=== PATIENT | female | born 1930 | race Caucasian/White ===

== ENCOUNTER 2017-11-06 07:37 | Emergency (ER) | payer MEDICARE, BC ==
[2017-11-06 08:32] LABS: Hematocrit 40.8 % (37.0-47.0); Hemoglobin 13.5 gm/dL (12.5-16.0); Mean Cell Volume 91.9 fl (78-100); Mean Corpuscular Hemoglobin 30.4 pg (27-31); Mean Corpuscular Hgb Conc 33.1 g/dl (32-36); Neutrophil # 2.6 K/mm3 (1.3-6.0); Neutrophil % 57.9 % (42-75.0); Platelet Count 138 K/mm3 (150-450); Red Blood Count 4.44 M/mm3 (4.2-5.4); Red Cell Distribution Width 12.3 % (11.5-14.0); White Blood Count 4.5 K/mm3 (4.0-10.5)
[2017-11-06 08:35] LABS: Urine Bilirubin Negative (NEGATIVE); Urine Blood Negative /ul (NEGATIVE); Urine Ketone Negative (NEGATIVE); Urine Nitrite Negative (NEGATIVE); Urine Protein Negative (NEGATIVE); Urine Urobilinogen Normal (NORMAL)
[2017-11-06 08:42] LABS: Urine Appearance Clear; Urine Bacteria None Seen; Urine Color Yellow; Urine RBC None Seen /hpf (0-5); Urine WBC None Seen /hpf (0-5)
[2017-11-06 08:59] LABS: ALT 27 U/L (19-67); AST 19 U/L (0-48); Albumin * 4.4 gm/dl (3.4-5.0); Alkaline Phosphatase * 68 U/L (50-170); Anion Gap 5.6 mmol/L (6.8-13.8); Bilirubin, Total 0.6 mg/dL (0.0-1.1); Blood Urea Nitrogen 16 mg/dL (3-23); Ca. Corrected For Albumin 8.8 mg/dL (8.4-10.2); Calcium * 9.4 mg/dL (7.9-10.9); Chloride 105 mmol/L (97-106); Glucose * 108 mg/dL (70-110); Lipase 55 U/L (73-393); Potassium 3.6 mmol/L (3.4-4.6); Sodium 138 mmol/L (132-142); Total Protein 7.6 gm/dL (6.2-8.2); Troponin I Less than 0.017 ng/ml (0.00-0.10)
[2017-11-06] MEDS ORDERED: DIATRIZOATE MEGLUMINE, SODIUM 30 ML BTL PO ONE (09:18)
[2017-11-06] MEDS ORDERED: DIATRIZOATE MEGLUMINE, SODIUM 30 ML BTL ONE (09:29)
--- NOTE | 2017-11-06 12:11 | ERNOTE ---
Abdominal HPI - Narrative Date of Service: 11/06/17 - General Chief Complaint: Abdominal Pain Time Seen by Provider: 11/06/17 08:03 Source: patient Exam Limitations: no limitations - Immun/Allergies/Home Medications Allergies/Adverse Reactions: Allergies adhesive tape Allergy (Unknown, Verified 11/06/17 07:46) gabapentin Adverse Reaction (Intermediate, Verified 11/06/17 07:46) NUMBNESS/CHEST PRESSURE LOREE Inhibitors Adverse Reaction (Mild, Verified 11/06/17 07:46) COUGH benazepril HCl [From Lotensin] Adverse Reaction (Mild, Verified 11/06/17 07:46) N/V duloxetine HCl [From Cymbalta] Adverse Reaction (Mild, Verified 11/06/17 07:46) STOMACH PAINS erythromycin base [Erythromycin Base] Adverse Reaction (Mild, Verified 11/06/17 07:46) Vomiting flavoxate HCl [From Urispas] Adverse Reaction (Mild, Verified 11/06/17 07:46) BLURRED VISION sertraline HCl [From Zoloft] Adverse Reaction (Mild, Verified 11/06/17 07:46) NUMBNESS IN MOUTH AND ARMS simvastatin [From Zocor] Adverse Reaction (Mild, Verified 11/06/17 07:46) GAS PAIN tramadol Adverse Reaction (Mild, Verified 11/06/17 07:46) SEVERE WEAKNESS Home Medications: HOME MEDICATIONS Acetaminophen [Tylenol] 1,300 mg PO Q12H 05/15/14 [Last Taken Unknown] Celecoxib [Celebrex] 200 mg PO DAILY 05/15/14 [Last Taken Unknown] LORazepam [Ativan] 0.5 mg PO HS PRN 05/15/14 [Last Taken Unknown] Levothyroxine Sodium [Synthroid] 100 mcg PO DAILY 05/15/14 [Last Taken Unknown] Wheat Dextrin [Benefiber] 2 tsp PO DAILY 05/15/14 [Last Taken Unknown] Amlodipine Besylate [Norvasc] 2.5 mg PO HS 04/29/16 [Last Taken Unknown] Cholecalciferol (Vitamin D3) [Vitamin D3] 2,000 unit PO DAILY 04/29/16 [Last Taken Unknown] Losartan Potassium [Cozaar] 100 mg PO DAILY 04/29/16 [Last Taken Unknown] [place]-3 Fatty Acids/Fish Oil [Fish Oil 1,000 mg Capsule] 2 each PO DAILY [Last Taken Unknown] Oxybutynin Chloride [Ditropan] 2.5 mg PO BID 04/29/16 [Last Taken Unknown] Sennosides/Docusate Sodium [Senokot-S] 2 tab PO DAILY 04/29/16 [Last Taken Unknown] Vit A/Vit C/Vit E/Zinc/Copper [Preservision Areds Softgel] 1 each PO BID [Last Taken Unknown] - History of Present Illness Narrative: Patient presents to the ED for upper abdominal pain. SHe relates that 1 week ago she had some vomiting. The vomiting resolved but ever since then she has been having upper abdominal pain. THis has been constant for the last week. Left upper abdomen. No fever. No diarrhea. No CP or SOB, no cough. Nothing seems to make it better or worse. Timing: constant, other - for 1 week Quality: moderate Activities at Onset: other - vomiting Modifying Factors - (Improves): Present: other - nothing Modifying Factors - (Worsens): Present: other - nothing Associated Symptoms: Absent: headache, chest pain, diarrhea-gross blood, fever/ chills, shortness of breath, swelling/mass in abdomen, syncope Prior Abdominal Problems: Present: none Prior Treatment: Absent: recently seen Review of Systems - Review of Systems Constitutional: Absent: fever ENT: Absent: sore throat Respiratory: Absent: shortness of breath Cardiology: Absent: chest pain Gastrointestinal/Abdominal: Present: See HPI Genitourinary: Absent: dysuria Skin: Absent: rash Neurological: Absent: weakness - Patient's Past Medical History Patient History - Medical: Arthritis, Fibromyalgia, Hypothyroidism Patient History - Cardiac/Respiratory: Hypertension Patient History - Cancer: No Hx of Cancer Patient History - Surgical Procedures: Cholecystectomy, Colonoscopy, Hysterectomy, Total Hip Replacement, T & A - Family History Mother Family History - Cardiac/Respiratory: CHF - Social History Living Situations: home Abuse History: No History of abuse Psych History: No pertinent hx Smoking Status: Never smoker Alcohol Use: none Drug Use: none Physical Exam - Physical Exam General Appearance: Present: alert, no apparent distress Head Exam: Present: normal inspection, no evidence of injury Eye Exam: Normal inspection: bilateral, PERRL: bilateral Ears, Nose, Throat: Present: normal ENT inspection Neck: Present: normal inspection Respiratory: Present: no respiratory distress, normal breath sounds, no accessory muscle use, lungs clear Cardiovascular/Chest: Present: regular rate, rhythm, normal peripheral pulses Gastrointestinal/Abdominal: Present: normal bowel sounds, nondistended, soft, other - there is mild tenderness Left upper quadrant. No peritoneal signs. No guarding or rebound. Non-surgical exam. Absent: guarding, rebound Extremity Exam: Present: normal range of motion Neurological Exam: Present: alert, no motor/sensory deficits Skin Exam: Present: normal color, warm/dry ED Progress - Results and Orders Patient's Lab Results:: I have reviewed the patient's lab results. - Vital Signs Patient's Vital Signs:: I have reviewed the patient's vital signs. Vital Signs: Vital Signs 11/06/17 11/06/17 11/06/17 07:40 08:16 08:50 Temperature 36.7 C Pulse Rate 77 81 69 Respiratory 12 12 12 Rate Blood Pressure 161/81 144/77 111/41 O2 Sat by Pulse 97 97 96 Oximetry 11/06/17 11/06/17 11/06/17 09:03 09:32 09:51 Temperature Pulse Rate 76 83 84 Respiratory 12 12 12 Rate Blood Pressure 134/72 148/76 142/74 O2 Sat by Pulse 96 99 98 Oximetry 11/06/17 11/06/17 11/06/17 10:05 10:24 11:26 Temperature Pulse Rate 76 74 76 Respiratory 12 12 12 Rate Blood Pressure 149/86 146/82 142/76 O2 Sat by Pulse 97 98 98 Oximetry - EKG EKG: NSR EKG read: Interp. by me EKG Comments: NSR carin 65. PVC. No evidence of acute infarct or ischemic pattern. - CT/Ultrasound CT/Ultrasound Narrative: I reviewed officail radiology CT report ABD/Pelvis. No acute process noted. - Progress/Reassessment Chief Complaint: Abdominal Pain Progress Note-Subjective: 11/06/17 12:10 No clear etiology of the Sx. Labs and CT unrevealing. Only mild tendenress. Nothing to suggest intra-thoracic etiology. She feels like going home. I discussed warning signs and reasons to return as well as the need for close f/u. Departure Clinical Impression: Abdominal pain - Departure Disposition: Home self-care Condition: Stable Instructions: Abdominal Pain, Adult, [id number] Additional Instructions: Rest. FLuids. Follow-up with Dr Roche in 2 days for a re-check. Return here for fever, vomiting, increased pain or if your condition worsens or changes in any way. Referrals: Lo Roche MD [Primary Care Provider] -
[2017-11-06 12:27] VITALS: BP 166/97
== END 2017-11-06 12:30 | disposition home or self-care (01) ==
LOC: ER 07:37
DX: I10 Essential (primary) hypertension; R10.12 Left upper quadrant pain; E03.9 Hypothyroidism, unspecified